=== PATIENT | male | born 1955 | race Caucasian/White ===

== ENCOUNTER 2021-08-17 21:29 | Inpatient (IN) | payer OTHER ==
[~2021-08-17] VITALS: Ht 167.6 cm; Wt 150.7 kg
[~2021-08-17 21:29] MED LIST: ACTOS 30 MG TAB30 M1 PO; ADULT LOW DOSE81 MG PO; AVANDIA8 MG PO; CARVEDILOL12.5 MG PO; CARVEDILOL3.125 MG PO; CRESTOR20 MG PO; DAILY VALUE1 EACH PO; ENOXAPARIN40 MG/0.1 SUBQ; FERRO-SEQUEL PO; FUROSEMIDE 20 M20 M1 PO; GLUCOPHAGE850 MG PO; JANTOVEN5 MG PO; K-DUR10 MEQ PO; LANOXIN 0.120.125 M2 PO; LASIX 40 MG TAB40 M1 OR; LISINOPRIL20 MG PO; LISINOPRIL5 MG PO; MAG OXIDE PO; MULTI VITAMIN1 EACH PO; PACERONE 200 M200 M1 PO; PERCOCET OR; VYTORIN 10-401 EACH PO
[2021-08-17 23:27] VITALS: BP 107/50
[2021-08-17 23:31] VITALS: BP 111/54
[2021-08-18] VITALS (16 sets, daily range): BP systolic 84–122; BP diastolic 32–64
[2021-08-18 06:11] LABS: HEMATOCRIT 23.1 % (42.0-52.0); HEMOGLOBIN 7.6 gm/dL (14.0-18.0); MCH 34.1 pg (26.0-34.0); MCV 103.3 fL (80.0-100.0); RBC 2.24 mil/uL (4.50-6.00); RDW 15.4 % (10.5-14.5); WBC 4.5 thou/uL (4.0-11.0)
[2021-08-18 06:23] LABS: ALBUMIN 2.6 g/dL (3.4-5.0); ANION GAP 6 mmol/L (7-16); BUN 100 mg/dL (7-18); CALCIUM 8.6 mg/dL (8.5-10.1); CHLORIDE 98 mmol/L (98-107); CO2 28 mmol/L (21-32); CREATININE 4.6 mg/dL (0.7-1.3); GLUCOSE 109 mg/dL (74-106); POTASSIUM 4.5 mmol/L (3.5-5.1); SGOT 28 U/L (15-37); SGPT 28 U/L (16-63); SODIUM 132 mmol/L (136-145); TOTAL BILIRUBIN 0.4 mg/dL (0.2-1.0); TOTAL PROTEIN 6.4 g/dL (6.4-8.2)
[2021-08-18 06:25] LABS: PROTIME 51.5 Seconds (10.5-12.1)
[2021-08-18 06:28] LABS: INR 5.11
[2021-08-18 06:43] LABS: CHOLESTEROL 88 mg/dL (<200); HDL CHOLESTEROL 23 mg/dL (>40); LDL CHOLESTEROL 50 mg/dL (<100); TC:HDL 3.8 Ratio (Not establshd); TRIGLYCERIDE 79 mg/dL (<150); VLDL 16 mg/dL (<40)
[2021-08-18 06:48] LABS: SERUM ASSESSMENT Clear
--- NOTE | 2021-08-18 07:51 | EKG ---
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 : [id number] Requested By: Gila Gutierrez Order Number: [id number] MD: Everton Jauregui Measurements Intervals [place] Rate: 64 P: 0 OK: 69 QRS: 73 QRSD: 154 T: 94 QT: 465 QTc: 480 Interpretive Statements Second degree AV block, Mobitz II IVCD, consider atypical LBBB Compared to ECG 03/06/2010 08:14:32 Second-degree AV block, Mobitz type I (Yahir) now present Sinus rhythm no longer present First degree AV block no longer present Electronically Signed On 08-18-2021 7:50:48 HERB DOCTOR by Everton Jauregui [email or web address] <ELECTRONICALLY SIGNED> By: Everton Jauregui MD, FACC 08/18/21 0750 0708 Everton Jauregui MD, [facility] /EPI
[2021-08-18] MEDS ORDERED: WARFARIN SODIU2.5 MG PO (08:23)
[2021-08-18] MEDS ORDERED: CARVEDILOL25 MG PO (08:23)
[2021-08-18] MEDS ORDERED: WELLBUTRIN SR150 MG PO (08:24)
[2021-08-18] MEDS ORDERED: GLIPIZIDE5 MG PO (08:24)
[2021-08-18] MEDS ORDERED: ROSUVASTATIN CA10 MG PO (08:24)
[2021-08-18] MEDS ORDERED: DEMADEX20 MG PO (08:24)
[2021-08-18] MEDS ORDERED: PROTONIX40 M2 PO (08:25)
[2021-08-18] MEDS ORDERED: AMIODARONE HCL400 MG PO (08:25)
[2021-08-18] MEDS ORDERED: PRINIVIL20 MG PO (08:25)
[2021-08-18] MEDS ORDERED: PIOGLITAZONE30 MG PO (08:25)
[2021-08-18] MEDS ORDERED: LEVOTHYROXINE75 MCG PO (08:26)
--- NOTE | 2021-08-18 18:02 | NUR ---
PT TRANSFERED TO THE UNIT FROM THE ICU. ORIENTED TO ROOM AND BEDSPACE. ASSESSMENT CHARTED - MEDS PER MAR - NO CO'S OF PAIN OR NAUSEA. RENETTA DIET AND FLUIDS. NO COVERAGE REQUIRED FOR ACCUCHECK. NO CO'S AT THE PRESENT TIME.
[2021-08-19 04:54] VITALS: BP 108/62
[2021-08-19 05:52] LABS: HEMATOCRIT 22.8 % (42.0-52.0); HEMOGLOBIN 7.8 gm/dL (14.0-18.0); MCH 35.1 pg (26.0-34.0); MCHC 34.1 g/dL (28.0-37.0); MCV 102.7 fL (80.0-100.0); RBC 2.22 mil/uL (4.50-6.00); RDW 14.9 % (10.5-14.5); WBC 4.5 thou/uL (4.0-11.0)
[2021-08-19 06:07] LABS: PROTIME 50.8 Seconds (10.5-12.1)
[2021-08-19 06:17] LABS: INR 5.03
[2021-08-19 06:52] LABS: ALBUMIN 2.6 g/dL (3.4-5.0); CALCIUM 8.8 mg/dL (8.5-10.1); CREATININE 4.2 mg/dL (0.7-1.3); MAGNESIUM 1.7 mg/dL (1.8-2.4); POTASSIUM 4.1 mmol/L (3.5-5.1); TOTAL BILIRUBIN 0.3 mg/dL (0.2-1.0); TOTAL PROTEIN 6.4 g/dL (6.4-8.2)
[2021-08-19 08:08] LABS: GLYCOHEMOGLOBIN (HGB A1C) 5.3 % (4.8-5.6)
[2021-08-19] MEDS ORDERED: MIDODRINE HCL 55 M1 PO (08:32)
[2021-08-19 08:48] VITALS: BP 107/38
[2021-08-19 12:51] VITALS: BP 102/34
[2021-08-19 16:53] VITALS: BP 126/45
--- NOTE | 2021-08-19 17:00 | NUR ---
NO FALLS OR INJURIES THIS SHIFT. ALL SAFETY MEASURES IN PLACE. VSS. REMAINS IN AFIB IN THE 70s. PATIENT ABLE TO COMPLETE ADLs WITH ASSISTANCE. UP TO BSC NUMEROUS TIMES TO ATTEMPT A BM WITH NO SUCCESS. URINAL AT BEDSIDE. PATIENT HAS HAD POOR APPETITE. NAUSEOUS AT LUNCH, SMALL EMESIS, ZOFRAN GIVEN Xs 1. NEW ORDER FOR ALBUMIN AND VITAMIN K GIVEN Xs 1 GIVEN. NO C/O PAIN. CARDIOLOGY HAS SIGNED OFF CARE. WILL DC HOME ONCE MEDICALLY STABLE.
[2021-08-19 19:43] VITALS: BP 124/61
[2021-08-20 00:10] VITALS: BP 96/47
[2021-08-20 03:54] VITALS: BP 109/58
--- NOTE | 2021-08-20 04:26 | NUR ---
RECEIEVED PATIENT AT 1900H.PATIENT IS ALERT AND ORIENTED X4.ON ROOM AIR BREATHING SPONTANEOUSLY.NO COMPLAINTS OF PAIN.NOT IN DISTRESS.ALL NEEDS ATTENDED.TO CONTINOUSLY MONITOR.
[2021-08-20 06:22] LABS: ALBUMIN 2.8 g/dL (3.4-5.0); CALCIUM 8.7 mg/dL (8.5-10.1); CREATININE 3.8 mg/dL (0.7-1.3); PHOSPHORUS 3.2 mg/dL (2.5-4.9); POTASSIUM 4.5 mmol/L (3.5-5.1)
[2021-08-20 07:36] VITALS: BP 92/51
[2021-08-20 11:01] VITALS: BP 139/70
--- NOTE | 2021-08-20 14:03 | NUR ---
PT IS ALERT AND ORIENTED X4. AFIB ON THE MONITOR AND ROOM AIR. PT WAS A MIN. ASSIST TO STAND AT THE BEDSIDE AND USE THE URINAL. PT NEEDS ASSISTANCE POSITIONING AND USING URINAL. NO COMPLAINTS OF PAIN OR DISCOMFORT AT THIS TIME. WILL CONTINUE TO MONITOR.
[2021-08-20 15:51] VITALS: BP 102/65
[2021-08-20 19:44] VITALS: BP 133/76
[2021-08-21 00:10] VITALS: BP 126/64
[2021-08-21 03:32] VITALS: BP 104/58
--- NOTE | 2021-08-21 04:42 | NUR ---
RECEIVED PATIENT AT 1900H.TRENT IS ALERT AND ORIENTED X4.ON ROOM AIR BREATHING SPONTANEOUSLY.NOT IN PAIN OR DISTRESS.ALL NEEDS ATTENDED.TO CONTINOUSLY MONITOR.
[2021-08-21 07:05] LABS: ALBUMIN 2.8 g/dL (3.4-5.0); CREATININE 3.3 mg/dL (0.7-1.3); PHOSPHORUS 2.9 mg/dL (2.6-4.7); POTASSIUM 4.4 mmol/L (3.5-5.1)
[2021-08-21 07:50] VITALS: BP 120/43
[2021-08-21 09:40] LABS: INR 1.3; PROTIME 13.3 Seconds (9.3-11.4)
[2021-08-21 11:55] VITALS: BP 138/93
[2021-08-21 15:08] VITALS: BP 111/51
--- NOTE | 2021-08-21 16:17 | NUR ---
REPORT RECIEVED FROM JIGAR FRAGOSO AT 1400
[2021-08-21 19:37] VITALS: BP 138/67
[2021-08-22] VITALS (7 sets, daily range): BP systolic 109–154; BP diastolic 50–79
[2021-08-22 03:54] LABS: ALBUMIN 2.6 g/dL (3.4-5.0); CALCIUM 8.8 mg/dL (8.5-10.1); CREATININE 3.2 mg/dL (0.7-1.3); PHOSPHORUS 2.5 mg/dL (2.5-4.9); POTASSIUM 4.5 mmol/L (3.5-5.1)
--- NOTE | 2021-08-22 04:49 | NUR ---
PT IS ALERT AND ORIENTED X4. COMPLAINS OF CONSTIPATION HE REPORTS SUPOSITORY AND PRUNE JUICE BUT NO BOWEL MOVEMENT YET. UP TO BEDSIDE COMMODE WITH NURSINNG ASSISTANCE X1. INSTRUCTED ON FLUID RESTRICTION PT UNAWARE OF FLUIDS RESTRICTION. VERBALIZES UNDERSTANDING NOW. DENIES ANY PAIN ISSUES. CALL LIGHT WITHIN REACH IF NEEDS ASSISTANCE PER NURSING.
--- NOTE | 2021-08-22 18:23 | NUR ---
PT IS AXOX4, PLEASANT; VS [id number], AFEBRILE, CONTROLLED AFIB ON THE MONITOR. DENIES PAIN, C/O LACK OF BM. PT OFFERED BM REGIMEN MIRALAX, PRUNE JUICE, WARM BEVERAGE TO PROMOTE BM. PT DID NOT HAVE BM THROUGH SHIFT. PT UP X1 WITH GB AND WALKER TO [facility]. POC IS TO CONTINUE TO MONITOR FOR SYNCOPAL EPISODES; PT/OT CONSULTED AND ORTHOSTATIC BP TAKEN. HIGH FALL PRECAUTIONS IN PLACE.
[2021-08-23 03:30] VITALS: BP 126/67
[2021-08-23 04:41] LABS: HEMOGLOBIN 8.1 gm/dL (14.0-18.0); MCH 34.5 pg (26.0-34.0); MCHC 33.7 g/dL (28.0-37.0); MCV 102.3 fL (80.0-100.0); RBC 2.35 mil/uL (4.50-6.00); RDW 14.9 % (10.5-14.5); WBC 4.4 thou/uL (4.0-11.0)
[2021-08-23 04:51] LABS: PROTIME 13.5 Seconds (10.5-12.1)
[2021-08-23 04:53] LABS: INR 1.25
[2021-08-23 05:43] LABS: ALBUMIN 2.7 g/dL (3.4-5.0); CALCIUM 8.8 mg/dL (8.5-10.1); PHOSPHORUS 2.5 mg/dL (2.5-4.9); POTASSIUM 4.4 mmol/L (3.5-5.1)
[2021-08-23 07:43] VITALS: BP 139/71
[2021-08-23 11:18] VITALS: BP 147/71
[2021-08-23 15:53] VITALS: BP 127/80
--- NOTE | 2021-08-23 18:05 | NUR ---
Pt remained A&0x4 and pleasant throughout shift; VS stable: controlled AFIB, BP 120s/50-60 and aferible. Pt still has not had a bowel movement but bowel sounds are present. Pt sat at edge of bed and stood at bedside x2 with standby assist and walker; pt showed no signs or symptoms of syncole episode or dizziness.
[2021-08-23 19:47] VITALS: BP 118/71
[2021-08-23 23:40] VITALS: BP 131/56
[2021-08-24 03:30] VITALS: BP 121/50
[2021-08-24 04:14] LABS: ALBUMIN 2.6 g/dL (3.4-5.0); CALCIUM 8.8 mg/dL (8.5-10.1); CREATININE 2.8 mg/dL (0.7-1.3); PHOSPHORUS 2.5 mg/dL (2.5-4.9); POTASSIUM 4.2 mmol/L (3.5-5.1)
--- NOTE | 2021-08-24 06:32 | NUR ---
ASSUMED CARE OF PT AT 1900. PT ASSESSED TO BE AOX4 66M PRESENTING WITH POSITIVE ORTHOSTATICS, CKD, AND CHF. PT RESTED THROUGHOUT THE NIGHT QUIETLY IN BED WITH FEW COMPLAINTS, VSS. RUNS AFIB RC ON THE MONITOR, OXYGEN MAINTAINED ON ROOM AIR, TAKES MIDODRINE SCHEDULED FOR HYPOTENSTION, CAN STAND AT BEDSIDE TO CHANGE BRIEFS, STABLE SUGARS AND NO PAIN. RESTING IN ROOM NOW, WILL CONT TO MONITOR.
[2021-08-24 08:00] VITALS: BP 132/53
--- NOTE | 2021-08-24 11:40 | NUR ---
Nutrition: pt admitted with orthostatic Hypotension. Seen for LOS. BMI 53, extreme class 3 obesity. Pt eating fair over admit, averaging < 50% of meals. Voiced food preferences and stated he was just informed of the alternative menu ordering option this morning. Plans to order meals and feels intake will improve. Familiar with diet and no education needs voiced. BG controlled, A1C 5.3. Low nutrition risk.
[2021-08-24 11:50] VITALS: BP 102/34
[2021-08-24 15:21] VITALS: BP 153/64
--- NOTE | 2021-08-24 17:00 | NUR ---
NO FALLS OR INJURIES THIS SHIFT. ALL SAFETY MEASURES IN PLACE. VSS. PATIENT ABLE TO COMPLETE ADLs WITH ASSISTANCE. UP TO BSC/CHAIR WITH STAND/PIVOT, GB AND WALKER. NO C/O PAIN. UP IN CHAIR MOST OF THE DAY PER MD ORDER. CARMELITA HOSES PLACED ON THIS MORNING. MORNING LABS REVIEWED. NO S/S OF INFECTION. REMAINS ON MIDODRINE FOR ORTHOSTATIC HYPOTENSION WHICH IS WORSE WHEN STANDING. BLOOD SUGARS MONITORED AND INSULIN GIVEN PER ORDER. PATIENT AGREES WITH POC. WILL DC ONCE MEDICALLY STABLE.
[2021-08-24 20:00] VITALS: BP 126/65
[2021-08-25 00:30] VITALS: BP 137/66
[2021-08-25 04:16] LABS: INR 1.74; PROTIME 18.5 Seconds (10.5-12.1)
[2021-08-25 04:50] LABS: ALBUMIN 2.8 g/dL (3.4-5.0); CALCIUM 8.9 mg/dL (8.5-10.1); CREATININE 2.6 mg/dL (0.7-1.3); PHOSPHORUS 2.7 mg/dL (2.5-4.9)
[2021-08-25 05:00] VITALS: BP 96/49
[2021-08-25 08:00] VITALS: BP 132/51; BP 97/56
--- NOTE | 2021-08-25 10:58 | NUR ---
Met with patient who admits with chf hypotension. Patient resides with s/o in home in [facility]. Patient reports all needs on one level. Steps to enter home and reports at time a struggle. Patient uses rolator walker at home. He reports hes fine in bed, sitting on side of bed but dizzy if standing. PCP in area is Dr Fernandez. He has cardiology in [facility] as well as nephrology. Discussed post acute care. Patient does not want nursing facility. Wants rehab here at [facility]. Consult to determine if candidate. [facility]emgt following.
[2021-08-25 12:00] VITALS: BP 146/71
[2021-08-25 16:11] VITALS: BP 109/55
--- NOTE | 2021-08-25 19:39 | NUR ---
Pt was pleasant, calm and cooperative throughout shift. VS were stable, and pt remained afebrile. Pt worked with PT and stood at bedside for 2mins - PT reported that pt became hypotensive (84/54) and felt dizzy. OT also worked with pt and reported that pt became hypotensive when standing. Pt continues to receieve midodrine Q6. Goal is to manage orthostaic hypostension so pt can resume regular daily activities without dizziness/risk of falling. Fall risk precautions are currently in place. Pt still has not had a BM; pt was given a suppository and drank a full bottle of magesium citrate.
[2021-08-25 20:04] VITALS: BP 137/75
[2021-08-26 00:25] VITALS: BP 99/37
[2021-08-26 04:41] VITALS: BP 120/73
[2021-08-26 06:01] LABS: ALBUMIN 2.9 g/dL (3.4-5.0); CALCIUM 8.6 mg/dL (8.5-10.1); CREATININE 1.7 mg/dL (0.7-1.3); PHOSPHORUS 3.5 mg/dL (2.5-4.9)
--- NOTE | 2021-08-26 06:41 | NUR ---
assumed pt care at 1900, alert and orientedx4, afib on tele, assessments as charted, up to the commodex1 assist, states some dizziness, no bm this shift, meds given as per mar, bp ok this shift, progressing slowly towards poc
[2021-08-26 07:43] VITALS: BP 115/60
[2021-08-26 11:21] VITALS: BP 115/61
--- NOTE | 2021-08-26 14:10 | NUR ---
NO FALLS OR INJURIES THIS SHIFT. ALL SAFETY MEASURES IN PLACE. VSS. PATIENT ABLE TO COMPLETE ADLs INDEPENDENTLY. NO C/O PAIN. CARMELITA HOSES IN PLACE. TOLERATES DIET. MORNING LABS REVIEWED. TOLERATES DIET, FLUID RESTRICTION IN PLACE. ACHS, NO INSULIN REQUIRED SO FAR THIS SHIFT. PATIENT TRANSFERRING TO 5N. REPORT CALLED TO OPAL. PATIENT PROGRESSED TOWARD POC.
[2021-08-26 16:02] VITALS: BP 134/54
--- NOTE | 2021-08-26 17:21 | NUR ---
Patient accepted to acute rehab. Sp with patient he is agreeable to transfer to acute rehab. Updated liason
== END 2021-08-26 16:41 | DRG 291 ==
LOC: 2N 21:29 → ICU 23:26 → 2N 08-18 16:08
PROVIDERS: Hospitalist; Internal Medicine; Internal Medicine Nephrology; Nurse Practitioner Family; ADMIT Hospitalist; ATTEND Hospitalist
DX: I13.0 Hypertensive heart and chronic kidney disease with heart failure and stage 1 through stage 4 chronic kidney disease, or unspecified chronic kidney disease (principal); N17.0 Acute kidney failure with tubular necrosis; I50.23 Acute on chronic systolic (congestive) heart failure; D68.59 Other primary thrombophilia; I48.20 Chronic atrial fibrillation, unspecified; E87.1 Hypo-osmolality and hyponatremia; Z68.43 Body mass index [BMI] 50.0-59.9, adult; N18.4 Chronic kidney disease, stage 4 (severe); I95.1 Orthostatic hypotension; I25.10 Atherosclerotic heart disease of native coronary artery without angina pectoris; E78.5 Hyperlipidemia, unspecified; E11.22 Type 2 diabetes mellitus with diabetic chronic kidney disease; I25.5 Ischemic cardiomyopathy; D50.9 Iron deficiency anemia, unspecified; E78.00 Pure hypercholesterolemia, unspecified; I35.0 Nonrheumatic aortic (valve) stenosis; D63.8 Anemia in other chronic diseases classified elsewhere; E66.01 Morbid (severe) obesity due to excess calories; R26.89 Other abnormalities of gait and mobility; R53.81 Other malaise; Z20.822 Contact with and (suspected) exposure to COVID-19; Z79.01 Long term (current) use of anticoagulants; I25.2 Old myocardial infarction; Z95.1 Presence of aortocoronary bypass graft; Z83.3 Family history of diabetes mellitus; Z82.49 Family history of ischemic heart disease and other diseases of the circulatory system; Z79.82 Long term (current) use of aspirin; Z79.899 Other long term (current) drug therapy; Z80.0 Family history of malignant neoplasm of digestive organs
CPT/HCPCS: 10078; 10081

== ENCOUNTER 2021-08-26 11:57 | Inpatient (IN) | payer OTHER ==
[~2021-08-26] VITALS: Ht 167.6 cm; Wt 150.6 kg
--- NOTE | ~2021-08-26 | PLAN ---
[facility] [place] [address] REHAB UNIT PLAN OF CARE Name: JAYAL ABDUL Room #: 512-P [facility] IN M.R.#: [id number] Admission: 08/26/21 Attend Phys: Jos Hdz MD Discharge: 09/08/21 Date of : 51 Report #: [id number] THIS REPORT FOR: cc: Isidoro Rasheed William R. MD [place],Jos Muller MD ~ DATE OF SERVICE: 08/28/2021 PROGRESS NOTE/OVERALL PLAN OF CARE HISTORY OF PRESENT ILLNESS: The patient was seen today for a virtual visit. He was in no distress. His heart rate tends to run on the low side and he was noted to be having a heart rate of 50 during the virtual visit with nurse practitioner, Qian Gutierrez. We will be contacting Cardiology to continue to follow with him while on rehabilitation. Overall, he is doing a little better as far as the orthostasis and did tolerate therapies better yesterday. He was able to sit to stand with contact guard and ambulated up to 68 feet with a front-wheeled walker with contact guard assistance. In occupational therapy, lower body dressing is dependent with upper body dressing moderate assistance. We have ordered bilateral thigh high CARMELITA hose in the abscence of abdominal binder. ASSESSMENT: 1. Syncope with positive loss of consciousness. 2. Gait instability with recurrent falls. 3. Orthostatic hypotension. 4. Acute exacerbation of congestive heart failure with an ejection fraction of 35%. 5. Cardiomyopathy. 6. Acute renal insufficiency superimposed on chronic kidney disease. 7. Chronic atrial fibrillation, on anticoagulation. 8. Diabetes mellitus type 2. PLAN: The overall plan of care is based on the pre-admission screen and information garnered from therapy assessments. 1. Estimated length of stay is probably going to be around 10 days. 2. Medical prognosis is reasonably good. 3. Anticipated interventions includes the interdisciplinary acute inpatient rehabilitation program. 4. Anticipated functional outcomes would be for the patient to become modified independent with transfers, mobility and ADLs, so that he can hopefully return back to his prior living situation. 5. Discharge destination would be back home where he lives with significant other. 6. Expected therapy by discipline includes PT and OT 1 and 1-1/2 hours per day each 5 days a week throughout the duration of the acute inpatient rehabilitation [place] [id number] REHAB UNIT PLAN OF CARE Name: JAYLA ABDUL Room #: 512-P [facility] IN [facility].#: [id number] Admission: 08/26/21 Attend Phys: Jos Hdz MD Discharge: 09/08/21 Date of : 51 Report #: [id number]. ADDENDUM ADDENDUM: The patient's prognosis for significant practical improvement within a reasonable period of time appears good. Given the patient's complex medical condition and risk of further medical complication, rehabilitation services could not be safely provided at the lower level of care such as a nursing home facility. By: [id number] Jos Hdz MD /jaqueline
[~2021-08-26 11:57] MED LIST changes: +AMIODARONE HCL400 MG PO; +CARVEDILOL25 MG PO; +DEMADEX20 MG PO; +GLIPIZIDE5 MG PO; +LEVOTHYROXINE75 MCG PO; +MIDODRINE HCL 55 M1 PO; +PIOGLITAZONE30 MG PO; +PRINIVIL20 MG PO; +PROTONIX40 M2 PO; +ROSUVASTATIN CA10 MG PO; +WARFARIN SODIU2.5 MG PO; +WELLBUTRIN SR150 MG PO
[2021-08-26 16:30] VITALS: BP 144/73
--- NOTE | 2021-08-26 17:00 | NUR ---
PT ARRIVED FROM VIA W/C. PT ABLE TO TRANSFER TO BED FROM W/C. PT ON ROOM AIR. PT DENIES ANY PAIN. PT BLOOD SUGAR CHECKED AND DINNER TRAY DELIVERED. PT WAS ABLE TO SIT ON SIDE OF BED FOR DINNER. PT STATED HE WAS ON A FLUID RESTRICTION OF 1500ML, PT HAS 400ML OUT OF PITCHER SINCE FROM DOWNSTAIRS.
--- NOTE | 2021-08-27 03:00 | NUR ---
PT ASSESSMENT COMPLETED AND VSS. MEDS GIVEN ORDERED AND WELL TOLERATED. FALL PRECAUTIONS IN PLACE. ASST WITH REPOSITION FOR COMFORT. PT HAS NOT HAD A BM FOR 7 DAYS. SENNA/MOM,AND SUPP GIVEN. 0 BM SO FAR DURING SHIFT. + FLATUS. BG CHECK COMPLETED. DRY SCAB ON LEFT GREAT TOE. OPEN TO AIR. SLEEPING WELL. DENIES NEEDS. WILL CONTINUE TO MONITOR FREQUENTLY.
[2021-08-27 06:00] VITALS: BP 116/52
--- NOTE | 2021-08-27 07:59 | NUR ---
PT ENDED UP HAVING TWO BOWEL MOVEMENTS EARLY THIS MORNING. ONE WAS MODERATE AND THE OTHER WAS SMALL. BOTH WERE DARK BROWN TO BLACK IN COLOR. PT STATES THAT HE WAS TAKING IRON.
[2021-08-27 08:00] VITALS: BP 129/48
[2021-08-27 08:27] LABS: HEMATOCRIT 25.7 % (42.0-52.0); HEMOGLOBIN 8.4 gm/dL (14.0-18.0); MCH 33.6 pg (26.0-34.0); MCHC 32.7 g/dL (28.0-37.0); MCV 102.9 fL (80.0-100.0); RBC 2.5 mil/uL (4.50-6.00); RDW 15.1 % (10.5-14.5); WBC 5.6 thou/uL (4.0-11.0)
[2021-08-27 08:34] LABS: CALCIUM 9.1 mg/dL (8.5-10.1); CREATININE 2.5 mg/dL (0.7-1.3); POTASSIUM 3.9 mmol/L (3.5-5.1)
[2021-08-27 08:47] LABS: INR 2.27; PROTIME 23.8 Seconds (10.5-12.1)
--- NOTE | 2021-08-27 12:20 | NUR ---
Nutrition: pt transferred to rehab unit. Dx syncope with LOC change, instability, recurrent falls. Pt assessed on CCU 08/24. Extreme class 3 obesity. Noted weight down 10# over the past week. Combination inadequate intake and diuresis. Torsemide now D/C. PMH: CHF, ABIMBOLA, CABG, DM. BG well controlled with A1C 5.3. Pt eating on average 55% of meals and voices fair appetite. Able to order meals as desired. Food preferences obtained. Pt agrees to Ensure max daily to supplement current intake/ increase protein provisions. Consider low nutrition risk with interventions in place.
[2021-08-27 17:21] VITALS: BP 94/66
[2021-08-27 20:09] VITALS: BP 115/63
--- NOTE | 2021-08-27 23:43 | NUR ---
PT ASSESSMENT COMPLETED AND VSS. MEDS GIVEN ORDERED AND WELL TOLERATED. FALL PRECAUTIONS IN PLACE. UP TO THE BSC AND BED WITH 2 ASST JUST IN CASE PT STARTED TO GET DIZZY. PT SAID THAT HE DID NOT GET DIZZY WHEN UP THIS EVENING. ASST WITH REPOSITION FOR COMFORT. SLEEPING WELL. WILL CONTINUE TO MONITOR FREQUENTLY. PT VOIDED A MODERATE AMOUNT OF DARK YELLOW URINE THIS EVENING ON THE BSC.
[2021-08-28 08:00] VITALS: BP 93/35
[2021-08-28 09:16] LABS: FOLIC ACID 11.8 ng/mL (8.6-58.9)
--- NOTE | 2021-08-28 12:49 | NUR ---
PATIENT CARE ASSUMED AT 0700, PATIENT IN BED AWAKE, ALERT AND ORIENTED X4, PATIENT CALM, COOPERATIVE AND PLEASANT WITH CARE, ASSESSMENT COMPLETED, ACTIVE BOWEL SOUND WITH SOFT AND ROUNDED ABDOMEN, BREATH SOUND CLEAR, SKIN INTACT, PATIENT BLOOD PRESSURE LOW AND WAS RE-CHECKED MANUALLY 101/60, PATIENT TOOK MEDICATION WHOLE WITHOUT ANY PROBLEM, PATIENT AMBULATE ON A WALKER, ASSIST X1-2, PATIENT IS A FALL RISK DUE TO DIZZINESS WHEN HE GET UP. PATIENT IS ABLE TO VERBALIZE NEEDS, HE DENIES PAIN. WILL CONTINUE TO MONITOR PATIENT FOR SAFETY.
--- NOTE | 2021-08-28 16:30 | NUR ---
66 yr old male admitted to hospital. transfer from [place] he had syncopal episode. DX : AE CHF, ABIMBOLA on CKD, and postural hypotension . nephrology and cardiology consulted. Medication been adjusted. echo with EF 35%. 5n acute rehab for cont. rehab and medical support. Chart review. Tc lives at home with significant other. 3 steps to enter the home . Has a 4ww. independent with ADLs and family assist with IADLs. retired. drives some still. hx of falls in past 2 months. Lives in [facility], PCP Dr Rell Rasheed. Will cont. following as needed for dc needs.
[2021-08-28 19:12] VITALS: BP 108/61
--- NOTE | 2021-08-29 04:54 | NUR ---
ASSUMED CARE AT 1915 OF 08/28. PATIENT IS A&OX4. DENIES PAIN OR SHORTNESS OF BREATH. MINIMAL ASSIST TO TRANSFER AND AMBULATE ISING GB AND WALKER. PATIENT DENIES DIZZINESS DURING TRANSFER FROM SIT TO STAND. VITAL SIGNS ARE STABLE. PATIENT WAS INCONTINENT OF BLADDER ONCE OVERNIGHT AND REQUESTED A BRIEF CHANGE. SLEEPING DURING HOURLY ROUNDS. FALL PRECAUTIONS IN PLACE. CALL LIGHT WITHIN REACH, WILL CONTINUE TO MONITOR.
[2021-08-29 06:17] LABS: INR 3.15; PROTIME 32.5 Seconds (10.5-12.1)
[2021-08-29 11:07] VITALS: BP 151/89
[2021-08-29 11:47] VITALS: BP 152/86
--- NOTE | 2021-08-29 12:50 | NUR ---
Assumed care from overnight shift this am. Client was in bed resting. Client presented calm and cooperative, with jovial mood. Client is able to ambulate with walker and supervision/standby assist. Client is on fall precautions due to episodes of syncope and uses gait belt, walker, and staff assist when walking or moving- client has been able to ambulate short distances with pt during this shift and was able to use toilet with minimal assistance and only slight dyspnea when walking. Client blood sugar 78 this morning; glizipde given. No insulin on file. Lunch BG 167. Client has voiced no concerns during this shift. All medications taken and tolerated well.
[2021-08-29 17:42] VITALS: BP 123/53
[2021-08-29 20:30] VITALS: BP 146/72
[2021-08-29 23:10] VITALS: BP 117/60
--- NOTE | 2021-08-30 04:00 | NUR ---
ASSUMED CARE AT 1900 OF 08/29. PATIENT IS A&OX4, REPORTED BLE MUSCULAR SORENESS DUE EXERCISES DONE IN THERAPY. +2 EDEMA PRESENT BILATERALLY, BLE THIGH HIGH CARMELITA HOSES REMOVED AT HS. PRN ACETAMINOPHEN ADMINISTERED PER PATIENT REQUEST. MINIMAL TO STANDBY ASSIST WITH TRANSFER AND AMBULATION USING GB AND WALKER. PATIENT HAS ONE SMALL BM AT HS, BUT REPORTS FEELING LIKE HE STILL NEEDS TO HAVE MORE. PRN PO LAXITIVE ADIMINISTERED. BOWEL SOUNDS X4Q PRESENT, PASSING FLATUS. WILL CONTINUE TO MONITOR. FALL PRECAUTIONS ON IN PLACE, CALL LIGHT WITHIN REACH.
[2021-08-30 05:15] VITALS: BP 111/49
[2021-08-30 06:03] LABS: INR 4.13; PROTIME 42.1 Seconds (10.5-12.1)
[2021-08-30 07:20] VITALS: BP 126/55
--- NOTE | 2021-08-30 08:52 | NUR ---
PT SITTING ON SIDE OF BED. PT DID USE BATHROOM THIS AM VIA W/C AND WALKER. PT STATED HE IS TAKING IT EASY WHEN STANDING DUE TO DIZZINESS. PT TOOK MEDS WHOLE WATER. PT LUNGS CLEAR. PT DENIES ANY PAIN AT THIS TIME.
[2021-08-30 19:12] VITALS: BP 128/64
--- NOTE | 2021-08-30 23:26 | NUR ---
PT ASSESSMENT COMPLETED AND VSS. MEDS GIVEN ORDERED AND WELL TOLERATED. FALL PRECAUTIONS IN PLACE. PT UP TO THE BATHROOM WITH ASST/GAIT/WALKER. PT DENIES FEELING DIZZY TONIGHT. PT CONCERNED ABOUT FEELING DIZZY WHEN HE GOES HOME. HE SAID THAT HE WANTS TO STAY LONGER SO THAT HIS MEDICATION CAN BUILD UP AND HE CAN GET BETTER. PT DENIES NEEDS. SLEEPING AT THIS TIME. WILL CONTINUE TO MONTIOR FREQUENTLY.
[2021-08-31 05:51] VITALS: BP 155/72
[2021-08-31 07:26] VITALS: BP 132/48
[2021-08-31 08:18] LABS: INR 3.99; PROTIME 40.7 Seconds (10.5-12.1)
[2021-08-31 08:48] LABS: HEMATOCRIT 25.3 % (42.0-52.0); HEMOGLOBIN 8.3 gm/dL (14.0-18.0); MCH 33.6 pg (26.0-34.0); MCHC 32.9 g/dL (28.0-37.0); MCV 102.2 fL (80.0-100.0); RBC 2.47 mil/uL (4.50-6.00); RDW 14.8 % (10.5-14.5); WBC 4.2 thou/uL (4.0-11.0)
[2021-08-31 08:57] LABS: ALBUMIN 2.8 g/dL (3.4-5.0); CALCIUM 8.9 mg/dL (8.5-10.1); CREATININE 2.7 mg/dL (0.7-1.3); POTASSIUM 4.3 mmol/L (3.5-5.1); TOTAL BILIRUBIN 0.3 mg/dL (0.2-1.0); TOTAL PROTEIN 6.6 g/dL (6.4-8.2)
--- NOTE | 2021-08-31 09:25 | NUR ---
PT WORKING WITH THERAPY THIS AM AND GETTING CARMELITA HOSE ON. PT DENIES ANY PAIN. PT STATED HE DIDN'T GET RESULTS FROM MIRALAX YESTERDAY, PT ALSO ONLY WANTS 1/2 DOSE OF MIRALAX DUE TO A FEAR OF A BLOW OUT WHEN HE DOES HAVE A SOLID BM. PT DID HAVE A COUPLE OF SMALL BM YESTERDAY. PT UP TO BATHROOM THIS AM AND TOLERATED STANDING WITHOUT ANY FEELING OF DIZZINESS. HOLDING GLIPIZIDE DUE TO LOW BLOOD SUGAR OF 65 FOR 2 AMS IN A ROW.
[2021-08-31 19:30] VITALS: BP 114/47
--- NOTE | 2021-08-31 23:16 | NUR ---
PT ASSESSMENT COMPLETED AND VSS. MEDS GIVEN ORDERED AND WELL TOLERATED. FALL PRECAUTIONS IN PLACE. UP TO THE BATHROOM WITH ASST/GAIT/WALKER. STEADY. PT DID NOT FEEL DIZZY WHEN WALKING IN THE ROOM TONIGHT. PT DENIES NEEDS. CARMELITA HOSE OFF. SLEEPING WELL. WILL CONTINUE TO MONITOR FREUQENTLY.
[2021-09-01 07:22] VITALS: BP 119/63
[2021-09-01 08:13] LABS: INR 3.35; PROTIME 34.5 Seconds (10.5-12.1)
--- NOTE | 2021-09-01 08:28 | NUR ---
PT SITTING ON SIDE OF BED EATING BREAKFAST. PT DENIES ANY DIZZINESS WHEN SITTING UP ON SIDE OF BED. PT DENIES ANY PAIN. PT LUNGS CLEAR. PT UP WITH WALKER WITH STAND-BY ASSIST. PT WANTS TO HAVE HALF DOSE OF MIRALAX DUE TO HAVING A BLOW OUT, PT HAS HYPERACTIVE BS. PT STATED HE MIGHT NEED A SUPP AFTER THERAPY.
--- NOTE | 2021-09-01 12:00 | NUR ---
Late entry clarification for 08/27 and 08/28: upon treatment and ADL's with OT and nursing, pt refused oral care. Pt is edentulous and stated, "no," when asked if he wanted to rinse or wash his mouth.
--- NOTE | 2021-09-01 12:36 | NUR ---
team meeting, recommendation. BP holding little bit better, not as much dizziness. INR still high. mod assist for sit to stand. 100ft with walker. Patient concerned of going home to soon and falling again. DC 09/08/21 HH (pt, ot, nursing). No dme .
--- NOTE | 2021-09-01 15:03 | NUR ---
PT DID WELL WITH BP WITH ABD BINDER OFF DURING THERAPY.
--- NOTE | 2021-09-01 15:43 | NUR ---
ADM MIRALAX 34GM IN APPLEJUICE AND LACTULOSE 40MG. PT TOLERATED WELL. PT WAS HESITANT TO TAKE LACTULOSE DUE TO SENSATIVE TASTE BUDS.
--- NOTE | 2021-09-01 17:59 | NUR ---
PT DIDN'T WANT TO EAT ANY DINNER. PT STATED HE IS WAITING ON RESULTS FROM LAXATIVES. NO RESULTS YET, PT IS BELCHING.
[2021-09-01 19:25] VITALS: BP 113/51
--- NOTE | 2021-09-02 03:49 | NUR ---
ASSUMED CARE AT 1900 OF 09/01. PATIENT IS A&OX4, DENIES PAIN OR SHORTNESS OF BREATH. STAND BY ASSIST WITH TRANSFERS AND AMBULATION, USING GB AND WALKER. SCHEDULED DOSE OF MIRALAX ADMINISTERED, PATIENT REPORTS PASSING FLATUS BUT STILL NO BM. BOWEL SOUNDS PRESENT X4Q. SLEEPING DURING HOURLY ROUNDS, FALL PRECAUTIONS IN PLACE. CALL LIGHT WITHIN REACH, WILL CONTINUE MONITOR.
[2021-09-02 07:20] VITALS: BP 155/81
[2021-09-02 08:09] LABS: INR 3.49; PROTIME 35.8 Seconds (10.5-12.1)
[2021-09-02 09:15] VITALS: BP 155/81
--- NOTE | 2021-09-02 13:15 | NUR ---
ASSUMED C/O PT AT 0700. PT A&OX4. PT C/O NOT HAVING A BM FOR A FEW DAYS. LAXITIVES GIVEN PER ORDER. VS CHARTED. GAIT STEADY WITH WALKER, GB AND SBA. TOLERATING REGULAR DIET. WILL CONTNIUE TO MONITOR.
[2021-09-02 16:32] VITALS: BP 141/83
[2021-09-02 19:16] VITALS: BP 112/67
--- NOTE | 2021-09-03 02:36 | NUR ---
assumed care approx 1900 evening 09/02. pt alert and oriented x4, appropriate and cooperative. pt up to bathroom to void before hs. sarath hose removed at hs. pt appears to be sleeping soundly. bed alarm on and call light in reach. will continue to monitor.
[2021-09-03 08:00] VITALS: BP 128/73
[2021-09-03 09:00] VITALS: BP 128/73
--- NOTE | 2021-09-03 09:50 | NUR ---
Nutrition follow up: Pt remains on rehab unit. Noted with weight fluctuations and +8 lb x 1 wk. Torsemide restarted 09/01. C/o constipation; bowel regimen in place, BM on 09/02 reported. Intakes variable yesterday, but 100% prior. 100% of Ensure daily. Meds and labs reviewed. Noted with elevated renal labs, magnesium depletion, hyponatremia. Mg supplementation in place. Nephrology following. Remains low nutrition risk.
[2021-09-03 12:12] VITALS: BP 146/69
--- NOTE | 2021-09-03 12:38 | NUR ---
Team meeting, recommendation: Not having to use add binder, knee high teds in place. 70ft with fww. Monitor bp. Dc 09/08 hh ( pt, ot, and nursing). No DME. BPCI
[2021-09-03 17:17] VITALS: BP 141/62
[2021-09-03 19:49] VITALS: BP 131/59
--- NOTE | 2021-09-04 05:17 | NUR ---
ASSUMED CARE OF PT AT 1915 ON 09/03/21. PT IS ON ROOM AIR. REPORTS PAIN 3/10 IN BILAT LE. PT REPORTED THAT PAIN WAS NOT ENOUGH TO WARRANT ORAL PAIN MEDS. WOULD ASK FOR TYLENOL IF NEEDED AT BEDTIME. TEDS WERE REMOVED. EDEMA NOTED. IS UP WITH STANDBY ASSIST, GB, WALKER. FALL PRECAUTIONS & HOURLY ROUNDING CONTINUED THIS SHIFT. LABS & VITALS REVIEWED. IS ABLE TO TURN SELF IN BED. PT REQUEST FOR DOOR TO REMAIN CLOSED. BED ALARM ON. CALL LIGHT WITHIN REACH. WILL CONTINUE TO MONITOR.
[2021-09-04 06:20] LABS: PROTIME 20.1 Seconds (10.5-12.1)
[2021-09-04 06:21] LABS: INR 1.9
[2021-09-04 08:00] VITALS: BP 135/64
--- NOTE | 2021-09-04 08:36 | NUR ---
PT SITTING UP IN THE CHAIR FOR BREAKFAST. PT DENIES ANY PAIN OR DIZZINESS. PT LUNGS CLEAR. PT HAD A BM YESTERDAY. PT DIDN'T WANT TO TAKE LACTULOSE UNTIL AFTER THERAPY TODAY. PT GETTING AROUND WITH WALKER WITH NO ISSUES.
--- NOTE | 2021-09-04 18:13 | NUR ---
PT REFUSED LACTULOSE THIS AFTERNOON. PT DID SAY HE WILL TAKE MIRALAX TONIGHT. PT TOLERATING DINNER. PT UP WITH DORA-BY ASSIST WITHOUT DIZZINESS.
[2021-09-04 19:30] VITALS: BP 120/64
--- NOTE | 2021-09-05 00:24 | NUR ---
PT ALERT AND ORIENTED X 4. AMB TO BR WITH WALKER AND ASSIST X 1 WITHOUT DIFFICULTY. NO C/O DIZZINESS. PT DENIES PAIN OR DISCOMFORT. BED ALARM ON FOR SAFETY. SLEEPING AT INTERVALS.
[2021-09-05 08:00] VITALS: BP 126/68
[2021-09-05 13:36] VITALS: BP 107/49
[2021-09-05 19:25] VITALS: BP 108/63
--- NOTE | 2021-09-06 02:06 | NUR ---
assumed care approx 1900 evening 09/05. pt sitting up in recliner at change of shift alert and oriented x4, pleasant and cooperative. pt stated he was feeling better. pt refused miralax stating he would take again in am. pt appears to be sleeping soundly. bed alarm on and call light in reach. will continue to monitor.
[2021-09-06 08:00] VITALS: BP 101/37
--- NOTE | 2021-09-06 09:38 | NUR ---
PT SITTING ON SIDE OF BED FOR BREAKFAST. PT DENIES ANY PAIN. PT UP WITH WALKER X1 ASSIST. PT TOOK MEDS WHOLE WITH WATER. PT DENIES ANY DIZZINESS WITH STANDING THIS AM. PT ABLE TO WALK TO BATHROOM WITH STEADY GAIT.
[2021-09-06 10:15] VITALS: BP 103/51
[2021-09-06 19:57] VITALS: BP 126/61
--- NOTE | 2021-09-07 05:10 | NUR ---
ASSUMED CARE AT 1915 OF 09/06. PATIENT IS A&OX4, DENIES PAIN OR SHORTNESS OF BREATH. STAND BY ASSIST WITH TRANSFER AND AMBULATION USING GB AND WALKER. SLEEPING ON HOURLY ROUNDS, ABLE TO REPOSITION SELF IN BED. FALL PRECAUTIONS IN PLACE, CALL LIGHT WITHIN REACH. WILL CONTINUE TO MONITOR.
[2021-09-07 05:32] LABS: HEMOGLOBIN 8.2 gm/dL (14.0-18.0); WBC 3.6 thou/uL (4.0-11.0)
[2021-09-07 05:34] LABS: ABSOLUTE NEUTROPHILS 1.9 thou/uL (1.4-8.2); BASOPHILS 1.2 % (0.0-2.0); EOSINOPHILS 11.3 % (0.0-3.0); HEMATOCRIT 24.8 % (42.0-52.0); LYMPHOCYTES 17.8 % (24.0-44.0); MCH 33.8 pg (26.0-34.0); MCHC 33.2 g/dL (28.0-37.0); MONOCYTES 16.6 % (1.0-8.0); PLATELET COUNT 192 thou/uL (150-400); POLYS 53.1 % (36.0-66.0); RBC 2.43 mil/uL (4.50-6.00); RDW 14.3 % (10.5-14.5)
[2021-09-07 06:06] LABS: CREATININE 2.4 mg/dL (0.7-1.3); MAGNESIUM 1.6 mg/dL (1.8-2.4); POTASSIUM 4.1 mmol/L (3.5-5.1)
[2021-09-07 07:45] VITALS: BP 126/68
[2021-09-07 11:00] VITALS: BP 90/47
[2021-09-07 11:30] VITALS: BP 140/68
[2021-09-07 11:45] VITALS: BP 97/48
--- NOTE | 2021-09-07 15:03 | NUR ---
Client presented calm and cooperative during this shift, joking with staff. Client was oriented 4x, and presented with no pain upon initial assessment. Client expressed that he was disappionted with not being able to walk more than he currently could, but expressed that he felt like he was doing better than initial admission. Client was encouraged to continue his pt and ot, as well as continuing his scheduled medications to which he agreed. Glizipide restarted this morning. Insulin restarted as well per sliding scale. Blood glucose for lunch was 198, and needed 4 units insulin. Blood pressure has been charting lower than usual, with orthostatic blood pressure erratic and under 100 systolic at times. Asymptomatic at this time. Reji carvalho put on, pt and ot done, which helped blood pressure return above 100 systolic. Midodrine given to help with bp as well. Client voices no current concerns at this time. No further concerns currently.
--- NOTE | 2021-09-07 15:51 | NUR ---
Cm notified by [employer] liaison that he would be serviced by there [facility] and they are short staff and will not be able to accept. Still looking for hh company in his home area. dc 09/08, fww and bpci.
[2021-09-07 19:42] VITALS: BP 125/65
--- NOTE | 2021-09-08 04:16 | NUR ---
ASSUMED CARE AT 1930 OF 09/07. PATIENT IS A&OX4. DENIES PAIN OR SOB. STAND BY ASSIST WITH TRANSFERS AND AMBULATION, USING GB AND WALKER. DENIES DIZZYNESS DURING TRANSFERS. VITAL SIGNS ARE STABLE. SLEEPING DURING HOURLY ROUNDS, FALL PRECAUTIONS IN PLACE. CALL LIGHT WITHIN REACH. WILL CONTINUE TO MONITOR.
[2021-09-08 07:16] VITALS: BP 146/65
[2021-09-08 07:21] VITALS: BP 158/74
[2021-09-08 07:26] VITALS: BP 110/50
[2021-09-08 08:59] VITALS: BP 110/50
--- NOTE | 2021-09-08 09:01 | NUR ---
DC home today with [facility] that provider plus delivered this morning. [facility] phone # [phone], fax # [phone]. Dc orders faxed to [facility]
[2021-09-08] MEDS ORDERED: MIRALAX17 GM PO (09:43)
[2021-09-08] MEDS ORDERED: MIDODRINE HCL 55 M1 PO ×3 (09:43→15:29)
[2021-09-08] MEDS ORDERED: ELIQUIS5 MG PO ×2 (09:43→15:29)
[2021-09-08] MEDS ORDERED: TORSEMIDE20 MG PO (09:43)
--- NOTE | 2021-09-08 11:21 | NUR ---
CARDIOLOGY CALLED BACK AND SAID PT IS GOOD FOR DISCHARGE.
--- NOTE | 2021-09-08 15:17 | NUR ---
Patient was discharged from facility at 1500 with assistance his , and SANDWICH COUNTER ATTENDANT. SANDWICH COUNTER ATTENDANT walked patient and out to car with patient belongings, patient escorted out in a W/C. Patient education completed prior to discharge, patient cleared by cardiology earlier today. Medications filled and scripts sent.
== END 2021-09-08 15:00 | disposition home health service (06) | DRG 947 ==
PROVIDERS: Internal Medicine; Nurse Practitioner; Nurse Practitioner Adult Health; ADMIT Physical Medicine & Rehabilitation; ATTEND Physical Medicine & Rehabilitation
DX: R53.81 Other malaise (principal); I50.23 Acute on chronic systolic (congestive) heart failure; N17.0 Acute kidney failure with tubular necrosis; I42.9 Cardiomyopathy, unspecified; N18.4 Chronic kidney disease, stage 4 (severe); I48.20 Chronic atrial fibrillation, unspecified; E44.0 Moderate protein-calorie malnutrition; D68.9 Coagulation defect, unspecified; Z68.43 Body mass index [BMI] 50.0-59.9, adult; I13.0 Hypertensive heart and chronic kidney disease with heart failure and stage 1 through stage 4 chronic kidney disease, or unspecified chronic kidney disease; R26.89 Other abnormalities of gait and mobility; I95.1 Orthostatic hypotension; K59.09 Other constipation; E78.5 Hyperlipidemia, unspecified; I25.10 Atherosclerotic heart disease of native coronary artery without angina pectoris; E66.01 Morbid (severe) obesity due to excess calories; I25.5 Ischemic cardiomyopathy; E11.22 Type 2 diabetes mellitus with diabetic chronic kidney disease; D63.8 Anemia in other chronic diseases classified elsewhere; I35.0 Nonrheumatic aortic (valve) stenosis; K59.00 Constipation, unspecified; I25.2 Old myocardial infarction; Z98.49 Cataract extraction status, unspecified eye; Z95.1 Presence of aortocoronary bypass graft
CPT/HCPCS: 10112